=== PATIENT | male | born 1955 | race Two or more races ===

== ENCOUNTER 2023-08-13 08:51 | Inpatient (IN) | payer OTHER, MEDICAID ==
[~2023-08-13] VITALS: Ht 162.6 cm; Wt 77.0 kg
[~2023-08-13 08:51] MED LIST: HYDR-4072 PO; MORP30TA5 PO
[2023-08-13 10:11] LABS: Basophils # (auto) 0.1 10 ^3/uL (0-0.2); Hemoglobin 9.1 g/dL (13.5-17.5); Lymphocytes # (auto) 0.7 10 ^3/uL (0.4-5.4); Neutrophils # (auto) 11.6 10 ^3/uL (1.6-8.6)
[2023-08-13 10:13] LABS: Basophils % (auto) 0.5 % (0.0-2.0); Eosinophils # (auto) 0.2 10 ^3/uL (0-0.8); Eosinophils % (auto) 1.3 % (0.0-7.0); Hematocrit 28.4 % (41.0-53.0); Lymphocytes % (auto) 5.7 % (10.0-50.0); Mean Corpuscular Hemoglobin 26.5 pg (28.0-32.0); Mean Corpuscular Volume 82.8 fL (80.0-100.0); Monocytes # (auto) 0.5 10 ^3/uL (0-1.3); Monocytes % (auto) 4.2 % (0.0-12.0); Neutrophils % (auto) 88.3 % (37.0-80.0); Red Blood Cells 3.43 10^6/uL (4.5-5.90); Red Cell Distribution Width 15.9 % (11.8-14.3); White Blood Cell 13.1 10^3/uL (4.4-10.8)
[2023-08-13 10:34] LABS: Alanine Aminotransferase 22 U/L (7-40); Albumin 4.7 g/dL (3.2-4.8); Alkaline Phosphatase 106 U/L (46-116); Anion Gap 10 (5-15); Aspartate Aminotransferase 27 U/L (13-40); BUN/Creatinine Ratio 16.3 (10.0-20.0); Blood Urea Nitrogen 40 mg/dL (9-23); Calcium 9.7 mg/dL (8.5-10.1); Carbon Dioxide 22 mmol/L (20-30); Chloride 107 mmol/L (98-107); Glucose 128 mg/dL (74-106); Potassium 4.7 mmol/L (3.5-5.1); Sodium 139 mmol/L (136-145)
[2023-08-13 10:35] LABS: Bilirubin, Total 0.6 mg/dL (0.2-1.0); Total Protein 7.1 g/dL (5.7-8.2)
[2023-08-13 11:17] VITALS: TEMP 98
[2023-08-13 11:26] LABS: Urine Bacteria None Seen /hpf (None Seen)
[2023-08-13 11:44] LABS: Urine Blood Negative /uL (Negative); Urine Clarity Clear (Clear); Urine Color Light-Yellow (Yellow); Urine Protein, UAD 1+ (Negative); Urine Specific Gravity 1.011 (1.001-1.035); Urine Urobilinogen Normal (Negative); Urine WBC 1 /hpf (0 - 3); Urine pH 5.5 (5.0-9.0)
[2023-08-13] MEDS ORDERED: FUROSEMIDE 40 MG/4 ML VIAL IV ONE (12:00)
[2023-08-13] MEDS ORDERED: FUR20T PO (13:12)
[2023-08-13] MEDS ORDERED: LIDO1PAD55 TOP (13:12)
[2023-08-13] MEDS ORDERED: ROSU5TAB24 PO (13:12)
[2023-08-13] MEDS ORDERED: GLIP5TAB21 PO (13:12)
[2023-08-13] MEDS ORDERED: DAPA1TAB4 PO (13:12)
[2023-08-13] MEDS ORDERED: ISOS20TA5 PO (13:12)
[2023-08-13] MEDS ORDERED: CEFP200T15 PO (13:12)
[2023-08-13] MEDS ORDERED: ATOR20TA50 PO (13:12)
[2023-08-13] MEDS ORDERED: DOXY100C4 PO (13:12)
[2023-08-13] MEDS ORDERED: WARF-111 PO (13:12)
[2023-08-13] MEDS ORDERED: ALPR1TAB7 PO (13:12)
[2023-08-13] MEDS ORDERED: BENA10TA90 PO (13:12)
[2023-08-13] MEDS ORDERED: IPRIH INH (13:12)
[2023-08-13] MEDS ORDERED: SODI650T PO (13:12)
[2023-08-13] MEDS ORDERED: DOXY1CAP57 PO (13:12)
[2023-08-13] MEDS ORDERED: ACETAMINOPHEN 325 MG TAB PO PRN (13:15)
[2023-08-13] MEDS ORDERED: AZITHROMYCIN 500MG/ 250ML 250 ML IV ONE (13:15)
[2023-08-13] MEDS ORDERED: cefTRIAXone 1GM/50ML D5W 50 ML IV ONE (13:15)
[2023-08-13] MEDS ORDERED: ALBUTEROL SULF 2.5 MG/0.5ML(0.5%) NEB SOLN NEB PRN ×2 (13:15→14:30)
[2023-08-13] MEDS ORDERED: HYDROcodone-ACET 5/325MG TAB PO PRN (13:15)
[2023-08-13 13:52] LABS: INR 1.67 (0.9-1.15)
[2023-08-13] MEDS ORDERED: DEXTROSE (50%) 50ML SYRG IV PRN (14:30)
[2023-08-13 15:56] LABS: Protein, Urine 58.8 mg/dL (0.0-11.9)
[2023-08-13 15:58] LABS: Creatinine, Urine 58.37 mg/dL (30.0-125.0)
[2023-08-13] MEDS ORDERED: WARFARIN SODIUM 2 MG TAB PO ONE (17:00)
[2023-08-13] MEDS ORDERED: InsuLIN REG 1unit/0.01ml Soln (100units/ml) SC SCH (17:00)
[2023-08-13] MEDS ORDERED: ACCU-CHEK COMFORT CURVE STRIP VI SCH (17:00)
[2023-08-13 18:23] VITALS: BP 113/71; PULSE 105; RESP 16; O2SAT 95
[2023-08-13] MEDS ORDERED: SODIUM BICARBONATE PO SCH (22:00)
[2023-08-13] MEDS ORDERED: ISOSORBIDE DINITRATE PO SCH (22:00)
[2023-08-14] MEDS ORDERED: cefTRIAXone 1GM/50ML D5W 50 ML IV SCH (09:00)
[2023-08-14] MEDS ORDERED: ATORVASTATIN 20 MG TAB PO SCH (10:00)
[2023-08-14] MEDS ORDERED: BENAZEPRIL HCL 10 MG TAB PO SCH (10:00)
[2023-08-14] MEDS ORDERED: ALBUMIN 25% 50 ML IV SCH (10:00)
[2023-08-14] MEDS ORDERED: FUROSEMIDE 20 MG/2 ML VIAL IV SCH (10:00)
[2023-08-14] MEDS ORDERED: AZITHROMYCIN 500MG/ 250ML 250 ML IV SCH (10:00)
== END 2023-08-13 18:35 | disposition left against medical advice (07) | DRG 291 ==
LOC: EDBD 08:51 → ER 08:51 → OVERFLOW 13:09
PROVIDERS: ADMIT Nurse Practitioner Family; ATTEND Nurse Practitioner Family
DX: I13.0 Hypertensive heart and chronic kidney disease with heart failure and stage 1 through stage 4 chronic kidney disease, or unspecified chronic kidney disease (principal); I50.43 Acute on chronic combined systolic (congestive) and diastolic (congestive) heart failure; J96.20 Acute and chronic respiratory failure, unspecified whether with hypoxia or hypercapnia; J15.69 Pneumonia due to other Gram-negative bacteria; J15.9 Unspecified bacterial pneumonia; J44.1 Chronic obstructive pulmonary disease with (acute) exacerbation; N18.4 Chronic kidney disease, stage 4 (severe); N17.9 Acute kidney failure, unspecified; J44.0 Chronic obstructive pulmonary disease with (acute) lower respiratory infection; K74.60 Unspecified cirrhosis of liver; G47.33 Obstructive sleep apnea (adult) (pediatric); E78.5 Hyperlipidemia, unspecified; I25.10 Atherosclerotic heart disease of native coronary artery without angina pectoris; I27.20 Pulmonary hypertension, unspecified; E11.22 Type 2 diabetes mellitus with diabetic chronic kidney disease; D72.829 Elevated white blood cell count, unspecified; I34.2 Nonrheumatic mitral (valve) stenosis; Z53.29 Procedure and treatment not carried out because of patient's decision for other reasons; Z79.899 Other long term (current) drug therapy; Z79.84 Long term (current) use of oral hypoglycemic drugs; Z79.01 Long term (current) use of anticoagulants; Z79.891 Long term (current) use of opiate analgesic; Z86.73 Personal history of transient ischemic attack (TIA), and cerebral infarction without residual deficits; Z91.041 Radiographic dye allergy status; Z95.2 Presence of prosthetic heart valve; Z99.81 Dependence on supplemental oxygen
CPT/HCPCS: 36415; 71045; 76775; 80053; 81001; 82570; 83880; 83930; 84156; 84300; 84484; 85025; 85610; 87040; 93005; 99291; G0378

== ENCOUNTER 2023-08-15 04:12 | Inpatient (IN) | payer OTHER, MEDICAID ==
[~2023-08-15] VITALS: Ht 160 cm; Wt 69.5 kg
[~2023-08-15 04:12] MED LIST changes: +ALPR1TAB7 PO; +ATOR20TA50 PO; +BENA10TA90 PO; +CEFP200T15 PO; +DAPA1TAB4 PO; +DOXY100C4 PO; +DOXY1CAP57 PO; +FUR20T PO; +GLIP5TAB21 PO; +IPRIH INH; +ISOS20TA5 PO; +LIDO1PAD55 TOP; +ROSU5TAB24 PO; +SODI650T PO; +WARF-111 PO
[2023-08-15 06:07] LABS: Basophils # (auto) 0.1 10 ^3/uL (0-0.2); Eosinophils # (auto) 0.2 10 ^3/uL (0-0.8); Hemoglobin 8.2 g/dL (13.5-17.5); Lymphocytes # (auto) 1.4 10 ^3/uL (0.4-5.4); Red Blood Cells 3.06 10^6/uL (4.5-5.90); Red Cell Distribution Width 15.5 % (11.8-14.3)
[2023-08-15 06:09] LABS: Basophils % (auto) 0.9 % (0.0-2.0); Eosinophils % (auto) 2.2 % (0.0-7.0); Hematocrit 25.2 % (41.0-53.0); Lymphocytes % (auto) 14.1 % (10.0-50.0); Mean Corpuscular Hemoglobin 26.8 pg (28.0-32.0); Mean Corpuscular Hgb Conc. 32.6 g/dL (32.0-36.0); Mean Corpuscular Volume 82.4 fL (80.0-100.0); Monocytes # (auto) 0.5 10 ^3/uL (0-1.3); Monocytes % (auto) 4.7 % (0.0-12.0); Neutrophils # (auto) 7.5 10 ^3/uL (1.6-8.6); Neutrophils % (auto) 78.1 % (37.0-80.0); Nucleated Red Blood Cells % 0.1 %; White Blood Cell 9.7 10^3/uL (4.4-10.8)
[2023-08-15 06:19] LABS: Alanine Aminotransferase 14 U/L (7-40); Albumin 4.5 g/dL (3.2-4.8); Alkaline Phosphatase 88 U/L (46-116); Anion Gap 12 (5-15); Aspartate Aminotransferase 22 U/L (13-40); BUN/Creatinine Ratio 16.7 (10.0-20.0); Blood Urea Nitrogen 38 mg/dL (9-23); Calcium 9.5 mg/dL (8.5-10.1); Carbon Dioxide 20 mmol/L (20-30); Chloride 107 mmol/L (98-107); Glucose 117 mg/dL (74-106); Potassium 4.2 mmol/L (3.5-5.1); Sodium 139 mmol/L (136-145)
[2023-08-15 06:20] LABS: Total Protein 7.2 g/dL (5.7-8.2)
[2023-08-15] MEDS: ALBUTEROL SULF 2.5 MG/0.5ML(0.5%) NEB SOLN NEB ONE (08:30)
[2023-08-15] MEDS: IPRATROPIUM BROM 0.5 MG/2.5ML INH SOL NEB ONE (08:31)
[2023-08-15] MEDS: ALBUTEROL SULF 2.5 MG/0.5ML(0.5%) NEB SOLN NEB SCH (10:00)
[2023-08-15] MEDS ORDERED: ALBUTEROL SULF 2.5 MG/0.5ML(0.5%) NEB SOLN NEB PRN (10:00)
[2023-08-15] MEDS ORDERED: ACETAMINOPHEN 325 MG TAB PO PRN (10:00)
[2023-08-15] MEDS ORDERED: DEXTROSE (50%) 50ML SYRG IV PRN (10:00)
[2023-08-15] MEDS: IPRATROPIUM BROM 0.5 MG/2.5ML INH SOL NEB SCH (10:00)
[2023-08-15] MEDS ORDERED: HYDROcodone-ACET 5/325MG TAB PO PRN (10:00)
[2023-08-15] MEDS ORDERED: HYDROcodone-ACET 10/325MG TAB PO PRN (11:00)
[2023-08-15 12:30] VITALS: PULSE 99; RESP 15; O2SAT 96
[2023-08-15] MEDS: AZITHROMYCIN 500MG/ 250ML 250 ML IV ONE (13:18)
[2023-08-15] MEDS: InsuLIN REG 1unit/0.01ml Soln (100units/ml) SC SCH (13:31)
[2023-08-15] MEDS: FUROSEMIDE 40 MG/4 ML VIAL IV ONE (13:31)
[2023-08-15] MEDS: ACCU-CHEK COMFORT CURVE STRIP VI SCH (13:31)
[2023-08-15] MEDS: cefTRIAXone 1GM/50ML D5W 50 ML IV ONE (13:43)
[2023-08-15] MEDS: methylPREDNISolone SOD SUCC 125 MG/2 ML VL IV ONE (13:43)
[2023-08-15 14:35] LABS: COVID19 ANTIGEN SOFIA FIA NEGATIVE (NEGATIVE); Rapid Influenza A Negative (Negative); Rapid Influenza B Negative (Negative)
[2023-08-15] MEDS: AZITHROMYCIN 500MG/ 250ML 250 ML IV SCH (15:10)
[2023-08-15] MEDS: MORPHINE SULFATE INJ 2 MG/ml SYRG IV PRN (16:26)
[2023-08-15] MEDS: ONDANSETRON HCL 4 MG/2 ML VIAL IV PRN (16:27)
[2023-08-15 17:39] LABS: INR 1.26 (0.9-1.15)
[2023-08-15 18:54] VITALS: PULSE 106; RESP 20; O2SAT 100
[2023-08-15 19:02] VITALS: PULSE 106; RESP 18; O2SAT 100
[2023-08-15 20:23] LABS: Triglycerides 65 mg/dL (< 150)
[2023-08-15 20:24] VITALS: PULSE 106; RESP 24; O2SAT 96
[2023-08-15 20:24] LABS: LDL Cholesterol 56 mg/dL (< 100)
[2023-08-15 20:25] LABS: Cholesterol 107 mg/dL (< 200); HDL Cholesterol 37 mg/dL (40-59)
[2023-08-15] MEDS: WARFARIN SODIUM 2 MG TAB PO ONE (21:31)
[2023-08-15] MEDS: SODIUM BICARBONATE 650 MG TAB PO SCH (22:21)
[2023-08-15] MEDS: CARVEDILOL 3.125 MG TAB PO SCH (22:24)
[2023-08-15] MEDS: FUROSEMIDE 40 MG/4 ML VIAL IV SCH (22:25)
[2023-08-15] MEDS: ISOSORBIDE DINITRATE 10 MG TAB PO SCH (22:25)
[2023-08-15 22:32] VITALS: PULSE 105; RESP 20; O2SAT 98
[2023-08-15 22:40] VITALS: PULSE 108; RESP 20; O2SAT 100
[2023-08-16] VITALS (15 sets, daily range): BP systolic 100–135; BP diastolic 62–77; PULSE 81–99; RESP 16–20; TEMP 97.5–98.8; O2SAT 91–100
[2023-08-16] MEDS ORDERED: DOCU-94 PO (05:45)
[2023-08-16 07:32] LABS: INR 1.53 (0.9-1.15); Prothrombin Time 15.6 sec (9.3-11.8)
[2023-08-16 07:37] LABS: Alanine Aminotransferase 16 U/L (7-40); Albumin 4.2 g/dL (3.2-4.8); Alkaline Phosphatase 83 U/L (46-116); Anion Gap 11 (5-15); Aspartate Aminotransferase 15 U/L (13-40); BUN/Creatinine Ratio 15.8 (10.0-20.0); Bilirubin, Total 0.7 mg/dL (0.2-1.0); Blood Urea Nitrogen 44 mg/dL (9-23); Calcium 9.3 mg/dL (8.5-10.1); Carbon Dioxide 23 mmol/L (20-30); Chloride 105 mmol/L (98-107); Glucose 164 mg/dL (74-106); Potassium 4.4 mmol/L (3.5-5.1); Sodium 139 mmol/L (136-145); Total Protein 6.8 g/dL (5.7-8.2)
[2023-08-16 07:56] LABS: Hemoglobin 7.7 g/dL (13.5-17.5); Mean Corpuscular Hemoglobin 26.6 pg (28.0-32.0)
[2023-08-16 07:59] LABS: Hematocrit 23.4 % (41.0-53.0); Mean Corpuscular Hgb Conc. 32.8 g/dL (32.0-36.0); Mean Corpuscular Volume 80.9 fL (80.0-100.0); Red Blood Cells 2.89 10^6/uL (4.5-5.90); Red Cell Distribution Width 15.3 % (11.8-14.3); White Blood Cell 8.1 10^3/uL (4.4-10.8)
[2023-08-16 08:13] LABS: Basophils % (manual) 0 (0.0-2.0); Blast Cells 0; Eosinophils % (manual) 0 (0-7); Myelocytes % 0; Promyelocytes % 0; Reactive Lymphocytes 0
[2023-08-16] MEDS ORDERED: BENAZEPRIL HCL 10 MG TAB PO SCH (10:00)
[2023-08-16] MEDS ORDERED: ATORVASTATIN 20 MG TAB PO SCH (10:00)
[2023-08-16] MEDS ORDERED: FUROSEMIDE 20 MG TAB PO SCH (10:00)
[2023-08-16] MEDS: cefTRIAXone 1GM/50ML D5W 50 ML IV SCH (11:01)
[2023-08-16] MEDS: ATORVASTATIN 20 MG TAB PO SCH (11:01)
[2023-08-16 11:36] LABS: Band Neutrophils % (manual) 2; Lymphocytes % (manual) 6 (10.0-50.0); Metamyelocytes % 1; Monocytes % (manual) 2 (0-12); Platelet Estimate Adequate
[2023-08-16] MEDS: WARFARIN SODIUM 2 MG TAB PO ONE (17:52)
[2023-08-17] VITALS (11 sets, daily range): BP systolic 96–149; BP diastolic 65–87; PULSE 77–91; RESP 16–20; TEMP 97.2–98; O2SAT 91–100
[2023-08-17 06:00] LABS: Basophils # (auto) 0.1 10 ^3/uL (0-0.2); Basophils % (auto) 0.5 % (0.0-2.0); Eosinophils # (auto) 0.1 10 ^3/uL (0-0.8); Hemoglobin 7.9 g/dL (13.5-17.5); Monocytes # (auto) 0.6 10 ^3/uL (0-1.3); Nucleated Red Blood Cells % 0.1 %; White Blood Cell 14.2 10^3/uL (4.4-10.8)
[2023-08-17 06:02] LABS: Eosinophils % (auto) 0.7 % (0.0-7.0); Lymphocytes # (auto) 1.5 10 ^3/uL (0.4-5.4); Lymphocytes % (auto) 10.7 % (10.0-50.0); Mean Corpuscular Hemoglobin 25.9 pg (28.0-32.0); Mean Corpuscular Hgb Conc. 31.6 g/dL (32.0-36.0); Mean Corpuscular Volume 82.1 fL (80.0-100.0); Monocytes % (auto) 4.1 % (0.0-12.0); Neutrophils # (auto) 11.9 10 ^3/uL (1.6-8.6); Red Blood Cells 3.05 10^6/uL (4.5-5.90); Red Cell Distribution Width 15.7 % (11.8-14.3)
[2023-08-17 06:13] LABS: INR 2.83 (0.9-1.15); Prothrombin Time 27.8 sec (9.3-11.8)
[2023-08-17 08:41] LABS: Alanine Aminotransferase 11 U/L (7-40); Albumin 4.1 g/dL (3.2-4.8); Alkaline Phosphatase 81 U/L (46-116); Anion Gap 11 (5-15); Aspartate Aminotransferase 14 U/L (13-40); BUN/Creatinine Ratio 17.6 (10.0-20.0); Bilirubin, Total 0.3 mg/dL (0.2-1.0); Calcium 9.3 mg/dL (8.5-10.1); Carbon Dioxide 24 mmol/L (20-30); Chloride 104 mmol/L (98-107); Glucose 127 mg/dL (74-106); Potassium 4.3 mmol/L (3.5-5.1); Sodium 139 mmol/L (136-145); Total Protein 6.7 g/dL (5.7-8.2)
[2023-08-17 08:54] LABS: Blood Urea Nitrogen 55 mg/dL (9-23)
[2023-08-17] MEDS: LACTULOSE 20Gm/30ML SOLN PO ONE (16:45)
[2023-08-17] MEDS: BUDESONIDE (INHALATION) 0.5 MG/2 ML NEB NEB SCH (19:14)
[2023-08-18] VITALS (16 sets, daily range): BP systolic 100–117; BP diastolic 64–70; PULSE 79–97; RESP 16–20; TEMP 97.6–98.3; O2SAT 92–100
[2023-08-18 05:14] LABS: Partial Thromboplastin Time 45.6 SEC (24.5-34.5); Prothrombin Time 38.6 sec (9.3-11.8)
[2023-08-18 05:31] LABS: INR 4.03 (0.9-1.15)
[2023-08-18 07:20] LABS: Alanine Aminotransferase 13 U/L (7-40); Albumin 3.9 g/dL (3.2-4.8); Alkaline Phosphatase 77 U/L (46-116); Anion Gap 9 (5-15); Aspartate Aminotransferase 14 U/L (13-40); BUN/Creatinine Ratio 20.8 (10.0-20.0); Bilirubin, Total 0.3 mg/dL (0.2-1.0); Blood Urea Nitrogen 59 mg/dL (9-23); Carbon Dioxide 25 mmol/L (20-30); Chloride 105 mmol/L (98-107); Glucose 178 mg/dL (74-106); Sodium 139 mmol/L (136-145); Total Protein 6.3 g/dL (5.7-8.2)
[2023-08-18 07:28] LABS: Basophils # (auto) 0.1 10 ^3/uL (0-0.2); Basophils % (auto) 0.8 % (0.0-2.0); Eosinophils # (auto) 0.3 10 ^3/uL (0-0.8); Eosinophils % (auto) 3.6 % (0.0-7.0); Hematocrit 25.5 % (41.0-53.0); Hemoglobin 8.1 g/dL (13.5-17.5); Lymphocytes # (auto) 1.9 10 ^3/uL (0.4-5.4); Mean Corpuscular Hgb Conc. 31.7 g/dL (32.0-36.0); Mean Corpuscular Volume 81.9 fL (80.0-100.0); Monocytes # (auto) 0.3 10 ^3/uL (0-1.3); Monocytes % (auto) 3.3 % (0.0-12.0); Neutrophils # (auto) 5.8 10 ^3/uL (1.6-8.6); Neutrophils % (auto) 69.3 % (37.0-80.0); Red Blood Cells 3.11 10^6/uL (4.5-5.90); Red Cell Distribution Width 15.1 % (11.8-14.3); White Blood Cell 8.4 10^3/uL (4.4-10.8)
[2023-08-18] MEDS ORDERED: ISOS20TA5 PO (10:19)
[2023-08-18] MEDS ORDERED: CARV-214 PO (10:19)
[2023-08-18] MEDS ORDERED: AZIT500T66 PO (10:19)
[2023-08-18] MEDS ORDERED: MORPHINE SULFATE INJ 2 MG/ml SYRG IV PRN (11:15)
[2023-08-18] MEDS: MORPHINE SULFATE INJ 2 MG/ml SYRG IV PRN (11:37)
[2023-08-18] MEDS: ALPRAZolam 0.5 MG TAB PO PRN (22:30)
[2023-08-18] MEDS: methylPREDNISolone SOD SUCC 40 MG/ML VL IV SCH (22:31)
[2023-08-19] VITALS (13 sets, daily range): BP systolic 97–129; BP diastolic 41–79; PULSE 68–103; RESP 17–22; TEMP 36.2; O2SAT 91–99
[2023-08-19 07:07] LABS: Rheumatoid Arthritis Factor <10.0 IU/mL (<14.0)
[2023-08-19 07:23] LABS: Basophils # (auto) 0 10 ^3/uL (0-0.2); Eosinophils # (auto) 0 10 ^3/uL (0-0.8); Hemoglobin 8.5 g/dL (13.5-17.5); Lymphocytes # (auto) 0.4 10 ^3/uL (0.4-5.4); Mean Corpuscular Hemoglobin 26.6 pg (28.0-32.0); Mean Corpuscular Volume 80.3 fL (80.0-100.0); Monocytes # (auto) 0.1 10 ^3/uL (0-1.3); Monocytes % (auto) 0.9 % (0.0-12.0)
[2023-08-19 07:24] LABS: Basophils % (auto) 0.4 % (0.0-2.0); Eosinophils % (auto) 0.2 % (0.0-7.0); Hematocrit 25.6 % (41.0-53.0); Lymphocytes % (auto) 5.4 % (10.0-50.0); Mean Corpuscular Hgb Conc. 33.2 g/dL (32.0-36.0); Neutrophils # (auto) 6.7 10 ^3/uL (1.6-8.6); Neutrophils % (auto) 93.1 % (37.0-80.0); Nucleated Red Blood Cells % 0.1 %; Prothrombin Time 29.3 sec (9.3-11.8); Red Blood Cells 3.19 10^6/uL (4.5-5.90); White Blood Cell 7.2 10^3/uL (4.4-10.8)
[2023-08-19 07:25] LABS: Alanine Aminotransferase 18 U/L (7-40); Albumin 4.2 g/dL (3.2-4.8); Alkaline Phosphatase 80 U/L (46-116); Anion Gap 8 (5-15); Aspartate Aminotransferase 15 U/L (13-40); BUN/Creatinine Ratio 23.6 (10.0-20.0); Bilirubin, Total 0.3 mg/dL (0.2-1.0); Blood Urea Nitrogen 53 mg/dL (9-23); Calcium 9.6 mg/dL (8.7-10.4); Carbon Dioxide 23 mmol/L (20-30); Chloride 108 mmol/L (98-107); Glucose 182 mg/dL (74-106); Lipase 86 U/L (12-53); Potassium 4.6 mmol/L (3.5-5.1); Sodium 139 mmol/L (136-145); Total Protein 6.6 g/dL (5.7-8.2)
[2023-08-19 13:07] LABS: Anti-Nuclear Antibody Direct Negative (Negative)
[2023-08-19] MEDS ORDERED: WARFARIN SODIUM 1 MG TAB PO ONE (17:00)
[2023-08-19] MEDS ORDERED: FUROSEMIDE 20 MG TAB PO SCH (18:00)
[2023-08-20 07:06] LABS: Antimyeloperoxidase (MPO) Ab <0.2 units (0.0-0.9); Antiproteinase 3 (PR-3) Ab <0.2 units (0.0-0.9)
[2023-08-20 18:07] LABS: Angiotensin-Converting Enzyme 15 U/L (14-82)
== END 2023-08-19 15:40 | disposition home or self-care (01) | DRG 177 ==
LOC: ER 04:12 → OVERFLOW 09:59 → WEST WING 23:06
PROVIDERS: ADMIT Nurse Practitioner Family; ATTEND Family Medicine
DX: J15.69 Pneumonia due to other Gram-negative bacteria (principal); I50.43 Acute on chronic combined systolic (congestive) and diastolic (congestive) heart failure; K85.90 Acute pancreatitis without necrosis or infection, unspecified; I13.0 Hypertensive heart and chronic kidney disease with heart failure and stage 1 through stage 4 chronic kidney disease, or unspecified chronic kidney disease; N17.9 Acute kidney failure, unspecified; J44.1 Chronic obstructive pulmonary disease with (acute) exacerbation; I24.9 Acute ischemic heart disease, unspecified; J44.0 Chronic obstructive pulmonary disease with (acute) lower respiratory infection; J81.1 Chronic pulmonary edema; J90 Pleural effusion, not elsewhere classified; J96.11 Chronic respiratory failure with hypoxia; Z20.822 Contact with and (suspected) exposure to COVID-19; J15.9 Unspecified bacterial pneumonia; I25.10 Atherosclerotic heart disease of native coronary artery without angina pectoris; E78.5 Hyperlipidemia, unspecified; D64.9 Anemia, unspecified; G89.4 Chronic pain syndrome; E11.22 Type 2 diabetes mellitus with diabetic chronic kidney disease; N18.32 Chronic kidney disease, stage 3b; B19.20 Unspecified viral hepatitis C without hepatic coma; I08.1 Rheumatic disorders of both mitral and tricuspid valves; Z99.81 Dependence on supplemental oxygen; Z91.199 Patient's noncompliance with other medical treatment and regimen due to unspecified reason; Z91.041 Radiographic dye allergy status; Z95.1 Presence of aortocoronary bypass graft; Z82.49 Family history of ischemic heart disease and other diseases of the circulatory system; Z79.899 Other long term (current) drug therapy; Z79.84 Long term (current) use of oral hypoglycemic drugs; Z79.01 Long term (current) use of anticoagulants; Z87.891 Personal history of nicotine dependence
CPT/HCPCS: 36415; 71045; 71250; 80053; 80061; 82164; 82962; 83036; 83520; 83690; 83880; 84484; 85007; 85025; 85027; 85610; 85730; 86038; 86256; 86431; 87081; 87426; 87804; 93005; 93306; 94640; 97110; 97116; 97163; 97530; 99291; G0378; J1815; J2405

== ENCOUNTER → 2023-11-07 | Outpatient (CLI) | payer OTHER, MEDICAID ==
[~2023-11-07] MED LIST changes: +AZIT500T66 PO; +CARV-214 PO; +DOCU-94 PO
[2023-11-07 10:42] LABS: INR 1.76 (0.9-1.15); Prothrombin Time 17.9 sec (9.3-11.8)
== END | disposition home or self-care (01) ==
LOC: LAB 09:56
PROVIDERS: ATTEND Physician Assistant
DX: I35.0 Nonrheumatic aortic (valve) stenosis (principal); Z95.2 Presence of prosthetic heart valve
CPT/HCPCS: 36415; 85610

== ENCOUNTER 2023-12-02 01:12 | Inpatient (IN) | payer OTHER, MEDICAID ==
[2023-12-02] VITALS (9 sets, daily range): BP systolic 119; BP diastolic 84; PULSE 90–103; RESP 15–26; TEMP 97.7; O2SAT 92–98
[~2023-12-02] VITALS: Ht 157.5 cm; Wt 100.3 kg
[~2023-12-02 01:12] MED LIST changes: -FUR20T PO; +FURO20TA4 PO
[2023-12-02 01:34] LABS: Basophils # (auto) 0.1 10 ^3/uL (0-0.2); Eosinophils # (auto) 0.3 10 ^3/uL (0-0.8); Eosinophils % (auto) 3.2 % (0.0-7.0); Hematocrit 31.8 % (41.0-53.0); Hemoglobin 10.6 g/dL (13.5-17.5); Lymphocytes # (auto) 1.5 10 ^3/uL (0.4-5.4); Lymphocytes % (auto) 17.8 % (10.0-50.0); Mean Corpuscular Hemoglobin 25.2 pg (28.0-32.0); Mean Corpuscular Hgb Conc. 33.2 g/dL (32.0-36.0); Monocytes # (auto) 0.5 10 ^3/uL (0-1.3); Monocytes % (auto) 5.9 % (0.0-12.0); Neutrophils # (auto) 6.2 10 ^3/uL (1.6-8.6); Neutrophils % (auto) 72.1 % (37.0-80.0); Nucleated Red Blood Cells % 0.1 %; Red Blood Cells 4.18 10^6/uL (4.5-5.90); Red Cell Distribution Width 18.7 % (11.8-14.3); White Blood Cell 8.6 10^3/uL (4.4-10.8)
[2023-12-02 01:53] LABS: Alanine Aminotransferase 16 U/L (7-40); Albumin 4.3 g/dL (3.2-4.8); Alkaline Phosphatase 123 U/L (46-116); Anion Gap 10 (5-15); Aspartate Aminotransferase 15 U/L (13-40); BUN/Creatinine Ratio 12.2 (10.0-20.0); Bilirubin, Total 0.7 mg/dL (0.2-1.0); Blood Urea Nitrogen 30 mg/dL (9-23); Calcium 9.5 mg/dL (8.7-10.4); Carbon Dioxide 21 mmol/L (20-30); Chloride 109 mmol/L (98-107); Glucose 114 mg/dL (74-106); Potassium 4.2 mmol/L (3.5-5.1); Sodium 140 mmol/L (136-145); Total Protein 7.3 g/dL (5.7-8.2)
[2023-12-02] MEDS: FUROSEMIDE 40 MG/4 ML VIAL IV ONE (02:48)
[2023-12-02] MEDS: ONDANSETRON HCL 4 MG/2 ML VIAL IV ONE (02:48)
[2023-12-02] MEDS: HYDROmorphone HCL 2 MG/ML VL/or syr IV ONE (02:49)
[2023-12-02] MEDS ORDERED: hydrALAZINE HCL 20 MG/ML VL IV PRN (03:30)
[2023-12-02] MEDS ORDERED: ACETAMINOPHEN 325 MG TAB PO PRN (03:30)
[2023-12-02] MEDS ORDERED: DEXTROSE (50%) 50ML SYRG IV PRN (03:30)
[2023-12-02] MEDS ORDERED: NITROGLYCERIN 0.4 MG SL TAB SL PRN (04:00)
[2023-12-02] MEDS: ASPirin 81 mg TAB PO ONE (04:09)
[2023-12-02 04:12] LABS: Basophils # (auto) 0.1 10 ^3/uL (0-0.2); Basophils % (auto) 0.8 % (0.0-2.0); Eosinophils # (auto) 0.2 10 ^3/uL (0-0.8); Eosinophils % (auto) 2.6 % (0.0-7.0); Hemoglobin 9.8 g/dL (13.5-17.5); Lymphocytes # (auto) 1.4 10 ^3/uL (0.4-5.4); Lymphocytes % (auto) 15.6 % (10.0-50.0); Mean Corpuscular Hemoglobin 24.9 pg (28.0-32.0); Mean Corpuscular Hgb Conc. 32.8 g/dL (32.0-36.0); Mean Corpuscular Volume 76.1 fL (80.0-100.0); Monocytes # (auto) 0.6 10 ^3/uL (0-1.3); Monocytes % (auto) 6.3 % (0.0-12.0); Neutrophils # (auto) 6.6 10 ^3/uL (1.6-8.6); Neutrophils % (auto) 74.7 % (37.0-80.0); Red Blood Cells 3.94 10^6/uL (4.5-5.90); Red Cell Distribution Width 18.4 % (11.8-14.3); White Blood Cell 8.9 10^3/uL (4.4-10.8)
[2023-12-02 04:24] LABS: Alanine Aminotransferase 15 U/L (7-40); Alkaline Phosphatase 112 U/L (46-116); Anion Gap 7 (5-15); Aspartate Aminotransferase 15 U/L (13-40); BUN/Creatinine Ratio 13.4 (10.0-20.0); Blood Urea Nitrogen 35 mg/dL (9-23); Calcium 9.3 mg/dL (8.7-10.4); Carbon Dioxide 23 mmol/L (20-30); Chloride 110 mmol/L (98-107); Glucose 121 mg/dL (74-106); Potassium 4.4 mmol/L (3.5-5.1); Sodium 140 mmol/L (136-145)
[2023-12-02 04:25] LABS: Albumin 4.1 g/dL (3.2-4.8); Bilirubin, Total 0.7 mg/dL (0.2-1.0); Total Protein 6.8 g/dL (5.7-8.2)
[2023-12-02] MEDS: SODIUM CHLOR 0.9% PF (SALINE LOCK) 10ML VIAL/SYR IV SCH (05:55)
[2023-12-02] MEDS: HYDROcodone-ACET 5/325MG TAB PO PRN (05:55)
[2023-12-02] MEDS: InsuLIN REG 1unit/0.01ml Soln (100units/ml) SC SCH (06:28)
[2023-12-02] MEDS: ACCU-CHEK COMFORT CURVE STRIP VI SCH (06:28)
[2023-12-02 06:49] LABS: Urine Bacteria None Seen /hpf (None Seen)
[2023-12-02 07:08] LABS: Urine Blood TRACE /uL (Negative); Urine Clarity Clear (Clear); Urine Color Yellow (Yellow); Urine Protein, UAD 1+ (Negative); Urine Specific Gravity 1.008 (1.001-1.035); Urine Urobilinogen Normal (Negative); Urine WBC <1 /hpf (0 - 3)
[2023-12-02 07:13] LABS: Amphetamine Screen, Urine Neg (NEGATIVE); Barbiturate Scree,Urine Neg (NEGATIVE); Benzodiazephine Screen, Urine Neg (NEGATIVE); Cocaine Screen, Urine Neg (NEGATIVE); Opiate Scree,Urine Neg (NEGATIVE); Phencyclidine Screen, Urine Neg (NEGATIVE)
[2023-12-02 07:14] LABS: Cannabinoid Screen, Urine Neg (NEGATIVE)
[2023-12-02] MEDS: MORPHINE SULFATE INJ 2 MG/ml SYRG IV PRN (07:45)
[2023-12-02] MEDS: ONDANSETRON HCL 4 MG/2 ML VIAL IV PRN (07:46)
[2023-12-02] MEDS: CARVEDILOL 3.125 MG TAB PO SCH (10:24)
[2023-12-02] MEDS: FUROSEMIDE 40 MG/4 ML VIAL IV SCH (10:24)
[2023-12-02] MEDS: ISOSORBIDE DINITRATE 10 MG TAB PO SCH (10:27)
[2023-12-02] MEDS: EMPAGLIFLOZIN 10 MG TAB PO SCH (10:27)
[2023-12-02 10:46] LABS: INR 2.36 (0.9-1.15); Partial Thromboplastin Time 37.9 SEC (24.5-34.5); Prothrombin Time 23.5 sec (9.3-11.8)
[2023-12-02] MEDS: IPRATROPIUM BROM 0.5 MG/2.5ML INH SOL NEB SCH (11:13)
[2023-12-02] MEDS: metOLazone 5 MG TAB PO ONE (12:53)
[2023-12-02] MEDS: FUROSEMIDE INJECTION 100 MG in D5W 5% 100 ML IV SCH (13:45)
[2023-12-02] MEDS: Glucerna Carbsteady SHAKE Vanilla 8oz PO SCH ×2 (15:00→18:30)
[2023-12-02] MEDS: WARFARIN SODIUM 1 MG TAB PO ONE (17:59)
[2023-12-02] MEDS: ATORVASTATIN 20 MG TAB PO SCH (20:37)
[2023-12-02] MEDS ORDERED: ATORVASTATIN 20 MG TAB PO SCH (22:00)
[2023-12-02] MEDS ORDERED: LINA5TAB IJ (23:31)
[2023-12-03] VITALS (13 sets, daily range): BP systolic 94–109; BP diastolic 58–73; PULSE 81–91; RESP 16–20; TEMP 97.1–98.1; O2SAT 90–99
[2023-12-03 05:57] LABS: Basophils # (auto) 0.1 10 ^3/uL (0-0.2); Eosinophils # (auto) 0.2 10 ^3/uL (0-0.8); Nucleated Red Blood Cells % 0.1 %; White Blood Cell 8.8 10^3/uL (4.4-10.8)
[2023-12-03 06:01] LABS: Basophils % (auto) 0.8 % (0.0-2.0); Eosinophils % (auto) 2.7 % (0.0-7.0); Hematocrit 33.1 % (41.0-53.0); Hemoglobin 11.1 g/dL (13.5-17.5); Lymphocytes # (auto) 1.2 10 ^3/uL (0.4-5.4); Lymphocytes % (auto) 14.1 % (10.0-50.0); Mean Corpuscular Hemoglobin 25.1 pg (28.0-32.0); Mean Corpuscular Hgb Conc. 33.5 g/dL (32.0-36.0); Mean Corpuscular Volume 74.8 fL (80.0-100.0); Monocytes # (auto) 0.5 10 ^3/uL (0-1.3); Monocytes % (auto) 5.6 % (0.0-12.0); Neutrophils # (auto) 6.7 10 ^3/uL (1.6-8.6); Neutrophils % (auto) 76.8 % (37.0-80.0); Red Blood Cells 4.43 10^6/uL (4.5-5.90); Red Cell Distribution Width 18.3 % (11.8-14.3)
[2023-12-03 06:13] LABS: INR 2.67 (0.9-1.15); Prothrombin Time 26.3 sec (9.3-11.8)
[2023-12-03 06:16] LABS: Alanine Aminotransferase 14 U/L (7-40); Albumin 4.7 g/dL (3.2-4.8); Alkaline Phosphatase 140 U/L (46-116); Anion Gap 10 (5-15); Aspartate Aminotransferase 13 U/L (13-40); BUN/Creatinine Ratio 13.2 (10.0-20.0); Bilirubin, Total 1.3 mg/dL (0.2-1.0); Blood Urea Nitrogen 42 mg/dL (9-23); Calcium 10.1 mg/dL (8.7-10.4); Carbon Dioxide 28 mmol/L (20-30); Chloride 97 mmol/L (98-107); Glucose 114 mg/dL (74-106); Potassium 3.9 mmol/L (3.5-5.1); Sodium 135 mmol/L (136-145); Total Protein 7.5 g/dL (5.7-8.2)
[2023-12-03] MEDS ORDERED: ASPirin 81 mg TAB PO SCH (10:00)
[2023-12-03] MEDS: metOLazone 5 MG TAB PO SCH (10:09)
[2023-12-03] MEDS: DOCUSATE SOD 100 MG CAP PO PRN (16:00)
[2023-12-03] MEDS: WARFARIN SODIUM 1 MG TAB PO ONE (18:29)
[2023-12-04] VITALS (23 sets, daily range): BP systolic 88–124; BP diastolic 49–87; PULSE 78–100; RESP 16–20; TEMP 97.6–98.1; O2SAT 87–99
[2023-12-04 06:00] LABS: Basophils # (auto) 0.1 10 ^3/uL (0-0.2); Basophils % (auto) 0.7 % (0.0-2.0); Lymphocytes # (auto) 1.5 10 ^3/uL (0.4-5.4); White Blood Cell 9.6 10^3/uL (4.4-10.8)
[2023-12-04 06:01] LABS: Eosinophils # (auto) 0.3 10 ^3/uL (0-0.8); Eosinophils % (auto) 3.5 % (0.0-7.0); Hematocrit 35.5 % (41.0-53.0); Lymphocytes % (auto) 15.2 % (10.0-50.0); Mean Corpuscular Hemoglobin 24.9 pg (28.0-32.0); Mean Corpuscular Hgb Conc. 33.7 g/dL (32.0-36.0); Mean Corpuscular Volume 73.9 fL (80.0-100.0); Monocytes # (auto) 0.7 10 ^3/uL (0-1.3); Monocytes % (auto) 7.7 % (0.0-12.0); Neutrophils % (auto) 72.9 % (37.0-80.0); Nucleated Red Blood Cells % 0.1 %; Red Cell Distribution Width 17.8 % (11.8-14.3)
[2023-12-04 06:06] LABS: Anion Gap 9 (5-15); Carbon Dioxide 32 mmol/L (20-30); Chloride 91 mmol/L (98-107); Potassium 3.9 mmol/L (3.5-5.1); Sodium 132 mmol/L (136-145)
[2023-12-04 06:12] LABS: BUN/Creatinine Ratio 13.6 (10.0-20.0); Glucose 144 mg/dL (74-106)
[2023-12-04 06:13] LABS: INR 2.91 (0.9-1.15); Partial Thromboplastin Time 46.2 SEC (24.5-34.5); Prothrombin Time 28.5 sec (9.3-11.8)
[2023-12-04 06:14] LABS: Blood Urea Nitrogen 56 mg/dL (9-23)
[2023-12-04] MEDS: LACTULOSE 20Gm/30ML SOLN PO ONE (14:43)
[2023-12-04] MEDS: THROAT LOZENGES(CEPASTAT) MT ONE (15:45)
[2023-12-04] MEDS ORDERED: WARFARIN SODIUM 1 MG TAB PO ONE (17:00)
[2023-12-04] MEDS ORDERED: THROAT LOZENGES(CEPASTAT) MT PRN (18:00)
[2023-12-04] MEDS: WARFARIN SODIUM 1 MG TAB PO ONE (18:29)
[2023-12-04 20:33] LABS: COVID19 ANTIGEN SOFIA FIA NEGATIVE (NEGATIVE); Rapid Influenza A Negative (Negative); Rapid Influenza B Negative (Negative)
[2023-12-05] VITALS (14 sets, daily range): BP systolic 86–124; BP diastolic 37–82; PULSE 67–93; RESP 14–18; TEMP 97.4–97.9; O2SAT 90–100
[2023-12-05 05:45] LABS: Anion Gap 10 (5-15); Carbon Dioxide 30 mmol/L (20-30); Chloride 91 mmol/L (98-107); Potassium 3.8 mmol/L (3.5-5.1); Sodium 131 mmol/L (136-145)
[2023-12-05 05:46] LABS: Calcium 9.8 mg/dL (8.7-10.4)
[2023-12-05 05:51] LABS: BUN/Creatinine Ratio 11.8 (10.0-20.0); Blood Urea Nitrogen 51 mg/dL (9-23); Glucose 106 mg/dL (74-106)
[2023-12-05 05:55] LABS: INR 2.81 (0.9-1.15); Prothrombin Time 27.6 sec (9.3-11.8)
[2023-12-05] MEDS: WARFARIN SODIUM 1 MG TAB PO ONE (17:00)
[2023-12-06] VITALS (9 sets, daily range): BP systolic 100–138; BP diastolic 62–80; PULSE 76–90; RESP 16–20; TEMP 36.5; O2SAT 94–100
[2023-12-06 06:58] LABS: Basophils # (auto) 0.1 10 ^3/uL (0-0.2); Basophils % (auto) 0.7 % (0.0-2.0); Hemoglobin 11.3 g/dL (13.5-17.5); Monocytes # (auto) 0.9 10 ^3/uL (0-1.3); Monocytes % (auto) 10.3 % (0.0-12.0)
[2023-12-06 07:04] LABS: Eosinophils # (auto) 0.3 10 ^3/uL (0-0.8); Eosinophils % (auto) 3.2 % (0.0-7.0); Hematocrit 33.5 % (41.0-53.0); Lymphocytes # (auto) 1.5 10 ^3/uL (0.4-5.4); Lymphocytes % (auto) 17.7 % (10.0-50.0); Mean Corpuscular Hemoglobin 25.1 pg (28.0-32.0); Mean Corpuscular Hgb Conc. 33.8 g/dL (32.0-36.0); Mean Corpuscular Volume 74.3 fL (80.0-100.0); Neutrophils # (auto) 5.7 10 ^3/uL (1.6-8.6); Neutrophils % (auto) 68.1 % (37.0-80.0); White Blood Cell 8.3 10^3/uL (4.4-10.8)
[2023-12-06 07:36] LABS: Anion Gap 9 (5-15); Carbon Dioxide 30 mmol/L (20-30); Chloride 95 mmol/L (98-107); Potassium 3.7 mmol/L (3.5-5.1); Sodium 134 mmol/L (136-145)
[2023-12-06 07:37] LABS: Calcium 9.6 mg/dL (8.7-10.4)
[2023-12-06 07:42] LABS: BUN/Creatinine Ratio 16.3 (10.0-20.0); Glucose 112 mg/dL (74-106)
[2023-12-06 07:44] LABS: Blood Urea Nitrogen 61 mg/dL (9-23); INR 2.07 (0.9-1.15); Partial Thromboplastin Time 40.9 SEC (24.5-34.5); Prothrombin Time 20.8 sec (9.3-11.8)
== END 2023-12-06 13:25 | disposition home health service (06) | DRG 280 ==
LOC: ER 01:12 → TELE 03:56 → TELE-WESTW 22:00
PROVIDERS: ADMIT Nurse Practitioner Family; ATTEND Family Medicine
DX: I13.0 Hypertensive heart and chronic kidney disease with heart failure and stage 1 through stage 4 chronic kidney disease, or unspecified chronic kidney disease (principal); I50.23 Acute on chronic systolic (congestive) heart failure; I21.A1 Myocardial infarction type 2; J44.1 Chronic obstructive pulmonary disease with (acute) exacerbation; N17.9 Acute kidney failure, unspecified; D63.8 Anemia in other chronic diseases classified elsewhere; E11.22 Type 2 diabetes mellitus with diabetic chronic kidney disease; E78.00 Pure hypercholesterolemia, unspecified; I05.0 Rheumatic mitral stenosis; Z66 Do not resuscitate; Z20.822 Contact with and (suspected) exposure to COVID-19; N18.32 Chronic kidney disease, stage 3b; Z91.041 Radiographic dye allergy status; Z95.1 Presence of aortocoronary bypass graft; Z95.2 Presence of prosthetic heart valve; Z82.49 Family history of ischemic heart disease and other diseases of the circulatory system; Z87.891 Personal history of nicotine dependence
CPT/HCPCS: 36415; 36600; 71045; 80048; 80053; 80307; 81001; 82805; 82962; 83690; 83735; 83880; 84484; 85025; 85379; 85610; 85730; 87426; 87804; 93005; 93971; 94640; 97163; G0378; J1815; J2405; J7060